=== PATIENT | female | born 2000 | race Caucasian/White ===

== ENCOUNTER 2021-01-27 13:28 | Inpatient (IN) ==
[2021-01-27 14:42] LABS: Basophils % 0.4 %; Eosinophils % 0.2 %; Hematocrit 43.2 % (35.3-44.9); Hemoglobin 14.8 g/dL (11.5-15.4); Immature Granulocytes % 0.3 % (0-4); Lymphocytes # 1.5 K/mcL (0.6-4.6); Lymphocytes % 14.2 %; Mean Corpuscular HGB Conc 34.3 g/dL (31.6-35.5); Mean Corpuscular Hemoglobin 31.3 pg (28.0-33.3); Mean Corpuscular Volume 91.3 fL (83.0-100.0); Mean Platelet Volume 10.7 fL (9.4-12.4); Monocytes # 0.6 K/mcL (0.0-1.3); Monocytes % 5.6 %; Neutrophils # 8.2 K/mcL (1.6-8.9); Platelet Count 320 K/mcL (140-400); Red Blood Count 4.73 M/mcL (3.82-4.97); Red Cell Distribution Width 12.5 % (11.5-14.5); Segmented Neutrophils % 79.3 %; White Blood Count 10.4 K/mcL (4.3-11.1)
[2021-01-27 15:10] LABS: Bacteria,Urine Few per hpf (None-Few); Bilirubin,Urine Negative (Negative); Blood,Urine Negative (Negative); Clarity,Urine Turbid (Clear); Color,Urine Light-Yellow (Yellow); Glucose,Urine (UA) Normal (Normal); Ketones,Urine Negative (Negative); Leukocyte Esterase,Urine Moderate (Negative); Mucus,Urine Few per lpf (None-Few); Nitrite,Urine Negative (Negative); Protein,Urine Negative (Neg-Trace); RBC,Urine 0-3 per hpf (0-3); Specific Gravity,Urine 1.014 (1.010-1.025); Squamous Epithelial Cell,Urine Moderate per hpf (None-Few); Urobilinogen,Urine Normal (Normal)
[2021-01-27 15:20] LABS: Acetaminophen < 10 mcg/mL (10-20); BUN/Creatinine Ratio 13 (6-26); Blood Urea Nitrogen 11 mg/dL (6-20); Calcium 9.3 mg/dL (8.6-10.3); Carbon Dioxide 24 mEq/L (23-29); Chloride 104 mEq/L (98-107); Cholesterol 147 mg/dL (< 200); Ethanol < 10 mg/dL (Less than 10); Glucose 96 mg/dL (70-105); HDL Cholesterol 37 mg/dL (40-59); LDL Cholesterol,Calculated 93 mg/dL (< 100); Osmolality,Calculated 285 (280-300); Potassium 3.6 mEq/L (3.5-5.1); Salicylate < 2.5 mg/dL (15.0-30.0); Sodium 138 mEq/L (136-145); Triglycerides 84 mg/dL (< 150); eGFR For African Americans > 60 (> 60); eGFR For Non-African Americans > 60 (> 60)
[2021-01-27 15:24] LABS: Amphetamine Screen,Urine Negative ng/mL (Cutoff=1000); Barbiturate Screen,Urine Negative ng/mL (Cutoff=200); Benzodiazepines Screen,Urine Negative ng/mL (Cutoff=200); Cannabinoid Screen,Urine Negative ng/mL (Cutoff = 50); Cocaine Screen,Urine Negative ng/mL (Cutoff= 300); Opiate Screen,Urine Negative ng/mL (Cutoff=300); Phencyclidine Screen,Urine Negative ng/mL (Cutoff=25)
[2021-01-27 16:58] LABS: Estimated Average Glucose 77 mg/dl; Hemoglobin A1C 4.3 %
[2021-01-27] MEDS ORDERED: traZODone 50 MG TABLET PO PRN (21:34)
[2021-01-27] MEDS ORDERED: Mag Hydrox/Al Hydrox/Simeth 30 ML UDC PO PRN (21:34)
[2021-01-27] MEDS ORDERED: hydrOXYzine pamoate 25 MG CAPSULE PO PRN (21:34)
[2021-01-27] MEDS ORDERED: *HR* LORazepam 2 MG/ML VIAL IM PRN (21:34)
[2021-01-27] MEDS ORDERED: MOM Conc 10 ML UD.LIQ PO PRN (21:34)
[2021-01-27] MEDS ORDERED: Ibuprofen 400 MG TABLET PO PRN (21:34)
[2021-01-27] MEDS ORDERED: *HR* LORazepam 1 MG TABLET PO PRN (21:34)
[2021-01-27] MEDS ORDERED: haloperidoL 5 MG TABLET PO PRN (21:34)
[2021-01-27] MEDS ORDERED: Haloperidol Lactate 5 MG/ML VIAL IM PRN (21:34)
[2021-01-28] MEDS ORDERED: Acetaminophen/Butalbital/CaffeineTABLET PO PRN (15:01)
[2021-01-28] MEDS: Topiramate 25 MG TABLET PO SCH (20:57)
[2021-01-29] MEDS: Topiramate 25 MG TABLET PO SCH (21:13)
[2021-01-30] MEDS: Topiramate 25 MG TABLET PO SCH (20:41)
[2021-01-31 08:08] VITALS: BP 117/79
== END 2021-01-31 11:58 | disposition home or self-care (01) | DRG 885 ==
LOC: EMEROOARM 13:28 → 1ANU 21:31
PROVIDERS: ADMIT Psychiatry & Neurology Psychiatry; ATTEND Psychiatry & Neurology Psychiatry

== ENCOUNTER 2021-05-09 22:05 | Inpatient (IN) ==
[2021-05-09 22:49] LABS: Amphetamine Screen,Urine Negative ng/mL (Cutoff=1000); Barbiturate Screen,Urine Negative ng/mL (Cutoff=200); Benzodiazepines Screen,Urine Negative ng/mL (Cutoff=200); Cannabinoid Screen,Urine Negative ng/mL (Cutoff = 50); Cocaine Screen,Urine Negative ng/mL (Cutoff= 300); Opiate Screen,Urine Negative ng/mL (Cutoff=300); Phencyclidine Screen,Urine Negative ng/mL (Cutoff=25)
[2021-05-09 22:53] LABS: Bilirubin,Urine Negative (Negative); Blood,Urine Negative (Negative); Clarity,Urine Clear (Clear); Color,Urine Light-Yellow (Yellow); Glucose,Urine (UA) Normal (Normal); Ketones,Urine Negative (Negative); Leukocyte Esterase,Urine Negative (Negative); Nitrite,Urine Negative (Negative); Protein,Urine Trace mg/dL (Neg-Trace); Specific Gravity,Urine > 1.030 (1.010-1.025)
[2021-05-09 23:08] LABS: Basophils % 0.6 %; Eosinophils # 0.1 K/mcL (0.0-0.6); Eosinophils % 1.1 %; Hematocrit 39.7 % (35.3-44.9); Hemoglobin 13.1 g/dL (11.5-15.4); Immature Granulocytes % 0.3 % (0-4); Lymphocytes # 2.3 K/mcL (0.6-4.6); Lymphocytes % 31.7 %; Mean Corpuscular Hemoglobin 31.3 pg (28.0-33.3); Mean Corpuscular Volume 94.7 fL (83.0-100.0); Mean Platelet Volume 10.7 fL (9.4-12.4); Monocytes # 0.5 K/mcL (0.0-1.3); Monocytes % 7.5 %; Neutrophils # 4.2 K/mcL (1.6-8.9); Platelet Count 272 K/mcL (140-400); Red Blood Count 4.19 M/mcL (3.82-4.97); Red Cell Distribution Width 12.3 % (11.5-14.5); Segmented Neutrophils % 58.8 %; White Blood Count 7.1 K/mcL (4.3-11.1)
[2021-05-09 23:26] LABS: Acetaminophen < 10 mcg/mL (10-20); BUN/Creatinine Ratio 29 (6-26); Blood Urea Nitrogen 20 mg/dL (6-20); Calcium 9.1 mg/dL (8.6-10.3); Carbon Dioxide 27 mEq/L (23-29); Chloride 105 mEq/L (98-107); Ethanol < 10 mg/dL (Less than 10); Glucose 76 mg/dL (70-105); Osmolality,Calculated 287 (280-300); Potassium 3.9 mEq/L (3.5-5.1); Salicylate < 2.5 mg/dL (15.0-30.0); Sodium 138 mEq/L (136-145); eGFR For African Americans > 60 (> 60); eGFR For Non-African Americans > 60 (> 60)
[2021-05-10] MEDS ORDERED: *HR* LORazepam 1 MG TABLET PO PRN (01:40)
[2021-05-10] MEDS ORDERED: *HR* LORazepam 2 MG/ML VIAL IM PRN (01:40)
[2021-05-10] MEDS ORDERED: Haloperidol Lactate 5 MG/ML VIAL IM PRN (01:40)
[2021-05-10] MEDS ORDERED: hydrOXYzine pamoate 25 MG CAPSULE PO PRN (01:40)
[2021-05-10] MEDS ORDERED: haloperidoL 5 MG TABLET PO PRN (01:40)
[2021-05-10] MEDS: Acetaminophen 325 MG TABLET PO PRN ×2 (02:12→20:18)
[2021-05-10] MEDS: traZODone 50 MG TABLET PO PRN ×2 (02:13→20:18)
[2021-05-10] MEDS ORDERED: Mag Hydrox/Al Hydrox/Simeth 30 ML UDC PO PRN (09:25)
[2021-05-10] MEDS ORDERED: MOM Conc 10 ML UD.LIQ PO PRN (09:25)
[2021-05-10] MEDS: FLUoxetine 20 MG CAPSULE PO SCH (11:14)
[2021-05-11] MEDS: FLUoxetine 20 MG CAPSULE PO SCH (08:48)
[2021-05-11] MEDS: Acetaminophen 325 MG TABLET PO PRN ×2 (11:59→20:12)
[2021-05-12] MEDS: FLUoxetine 20 MG CAPSULE PO SCH (09:54)
[2021-05-12 10:16] VITALS: BP 115/80
== END 2021-05-12 14:39 | disposition home or self-care (01) | DRG 885 ==
LOC: EMEROOARM 22:05 → 1ANU 05-10 01:29
PROVIDERS: ADMIT Psychiatry & Neurology Psychiatry; ATTEND Psychiatry & Neurology Psychiatry